=== PATIENT | female | born 1960 | race Caucasian/White ===

== ENCOUNTER → 2017-01-10 | Outpatient (CLI) | payer BC ==
[~2017-01-10] VITALS: Ht 154.9 cm; Wt 59.1 kg
[~2017-01-10] MED LIST: ACTEMRA162 MG/0.9 SQ; AFRIN 15 ML15 ML NS; ALBUTEROL1.25 MG/3 IH; ALDACTONE50 MG PO; ALEVE 220MG220 MG PO; AMOXICILLIN 8751 TAB PO; ASPIRIN E.C. 8181 MG PO; ATROVENTNS0.03% NS; BACTRIM DS 8001 TAB PO; BENADRYL25 M2 PO; BIOTIN FORTE EXT5 MG PO; CALTRATE-600 W600 MG PO; CARDIZEM CD 18180 MG PO; CARDIZEM CD 30300 MG PO; CARDIZEM CD120 MG PO; CELLCEPT 5500 MG/TAB PO; CENTRUM1 TAB PO; CLARITIN 1010 MG/TAB PO; COLACE 100100 MG/CAP PO; COZAAR100 MG PO; CRANBERRY450 MG PO; CYMBALTA 30MG30 MG PO; DESYREL 50MG50 MG PO; DULCOLAX TAB5 MG PO; FERROUS GL325 MG/TAB PO; FLONASE NASAL S16 GM NS; FLOVENT 110MCG7.9 GM IH; FOLIC ACID 11 MG/TA1 PO; FORTAMET500 MG PO; FOSAMAX 70MG TA70 MG PO; GLUCOPHAGE XR500 M1 PO; KLONOPIN 0.5MG0.5 MG PO; LIPITOR 10MG10 MG PO; LIQUID MAGNESI400 MG PO; MAGNESIUM200 MG PO; MASON NATURAL1200 MG PO; MERIBIN5 MG PO; MIDRIN 325 MG-11 CAP PO; MULTI VITAMINS1 TAB PO; MVI; NAPROSYN 2250 MG/TAB PO; NASACORT AQ N16.5 GM NS; NASACORT OTC NS; NEURONTIN300 MG/CAP PO; NORCO 325 MG-7.1 TAB PO; OMEGA-3 FISH1000 MG PO; OSCAL 500 TAB500 MG PO; PREDNISONE10 MG PO; PREMARIN 0.60.625 M1 PO; PREMARIN 0.9MG0.9 MG PO; PRIL40 PO; PRILOSEC 20MG20 MG PO; PROAIR HFA0.09 MG/AC IH; PROBIOTIC FORMU1 CAP PO; RASUVO10 MG/0.2 SQ; RITUXAN 50500 MG/50 IV; SALAGEN 5MG TAB5 MG PO; SALINE MIST 4545 ML NS; SENOKOT S 50 MG1 TAB PO; SINGULAIR 110 MG/TAB PO; SINGULAIR10 MG PO; TRAZODO50 MG PO; TREXALL15 MG PO; TURMERIC500 MG PO; TYLENOL 500MG500 MG PO; VALTREX 50500 MG/TAB PO; VENTOLIN0.09 MG IH; VITAMIN D 1001000 IU PO; VTAMINC250TA PO; WELLBUTRIN SR150 M1 PO; ZATADOR; ZYRTEC 10MG10 MG PO
[2017-01-10 10:13] VITALS: BP 133/72; PULSE 94
[2017-01-10 11:17] VITALS: BP 137/71; PULSE 98
== END ==
LOC: COL.RAD 09:45
DX: E07.89 Other specified disorders of thyroid (principal)

== ENCOUNTER → 2017-01-17 | Outpatient (CLI) | payer BC | LOC: MC.RAD 09:00 | DX: Z12.31 Encounter for screening mammogram for malignant neoplasm of breast (principal) ==

== ENCOUNTER → 2017-02-13 | Outpatient (CLI) | payer BC | LOC: COL.RAD 07:31 | DX: R11.10 Vomiting, unspecified (principal); Z98.890 Other specified postprocedural states ==

== ENCOUNTER → 2017-03-30 | Outpatient (CLI) | payer BC | LOC: COL.RAD 03-28 09:30 | DX: R11.2 Nausea with vomiting, unspecified (principal); M13.811 Other specified arthritis, right shoulder ==

== ENCOUNTER 2017-05-29 09:21 | Inpatient (IN) | payer BC ==
[2017-05-29] VITALS (8 sets, daily range): BP systolic 98–116; BP diastolic 23–49; PULSE 89–110; TEMP 98.2–100.4
[~2017-05-29] VITALS: Ht 154.9 cm; Wt 57.5 kg
[~2017-05-29 09:21] MED LIST changes: -AFRIN 15 ML15 ML NS; -ALEVE 220MG220 MG PO; -AMOXICILLIN 8751 TAB PO; -CARDIZEM CD 30300 MG PO; -MASON NATURAL1200 MG PO; -NASACORT OTC NS; -PREMARIN 0.60.625 M1 PO; -PRIL40 PO; -RASUVO10 MG/0.2 SQ; -SALINE MIST 4545 ML NS
[2017-05-29 10:05] LABS: HEMATOCRIT 41.2 % (37.0-47.0); HEMOGLOBIN 13.8 g/dl (12.5-16.0); MEAN CELL VOLUME 98 fl (80.0-100.0); MEAN CORPUSCULAR HEMOGLOBIN 33 pg (27.0-31.0); MEAN CORPUSCULAR HGB CONC 34 g/dl (33.0-37.0); MEAN PLATELET VOLUME 9.6 fl (7.4-10.4); PLATELET COUNT 210 K/mm3 (130-400); RED BLOOD COUNT 4.19 M/mm3 (4.10-5.30); REDCELL DISTRIBUTION WIDTH-CV 14.8 % (11.5-14.5); WHITE BLOOD COUNT 2.7 K/mm3 (4.8-10.8)
[2017-05-29 10:13] LABS: ADD PATHOLOGY DIFF REVIEW NO
[2017-05-29 10:16] LABS: ADJUSTED CALCIUM 8.8 mg/dL (8.4-10.2); ALBUMIN 3.9 gm/dL (3.5-5.0); BILIRUBIN,TOTAL 0.9 mg/dL (0.0-1.0); CALCIUM 8.7 mg/dL (8.4-10.2); CREATININE, serum 0.83 mg/dL (0.52-1.25); POTASSIUM 3.5 mmol/L (3.4-5.0); TOTAL PROTEIN 5.9 gm/dL (6.4-8.2)
[2017-05-29 11:11] LABS: BAND 17 % (0-10); BASOPHIL 3 % (0-2); EOSINOPHIL 4 % (0-4); NEUTROPHILS 35 % (42.0-75.2); PLATELET ESTIMATE NORMAL (NORMAL); TOTAL CELLS COUNTED 100
[2017-05-29 12:55] LABS: PH 5 (5-8); SQUAMOUS EPITHELIAL None Seen /hpf; URINE APPEARANCE Clear; URINE BACTERIA None Seen /hpf; URINE BILIRUBIN Negative (NEGATIVE); URINE BLOOD Negative (NEGATIVE); URINE COLOR Yellow; URINE GLUCOSE Negative (NEGATIVE); URINE KETONE Negative (NEGATIVE); URINE RBC 0-2 /hpf; URINE UROBILINOGEN Negative (NEGATIVE); URINE WBC 0-2 /hpf
[2017-05-29] MEDS ORDERED: ALEVE 220MG220 MG PO (14:38)
[2017-05-29] MEDS ORDERED: SALAGEN 5MG TAB5 MG PO (14:39)
[2017-05-29] MEDS ORDERED: FOLIC ACID 11 MG/TA1 PO (14:39)
[2017-05-29] MEDS ORDERED: AFRIN 15 ML15 ML NS ×2 (15:05→20:13)
[2017-05-29] MEDS ORDERED: SALINE MIST 4545 ML NS (20:13)
[2017-05-29] MEDS ORDERED: NASACORT OTC NS (20:14)
[2017-05-30 01:05] VITALS: BP 104/46; PULSE 95; TEMP 100.8
[2017-05-30] MEDS ORDERED: WELLBUTRIN SR150 M1 PO (02:29)
[2017-05-30] MEDS ORDERED: FOLIC ACID 11 MG/TA1 PO (02:33)
[2017-05-30] MEDS ORDERED: ALEVE 220MG220 MG PO (02:35)
[2017-05-30] MEDS ORDERED: PREMARIN 0.60.625 M1 PO (02:43)
[2017-05-30] MEDS ORDERED: RASUVO10 MG/0.2 SQ (02:43)
[2017-05-30] MEDS ORDERED: NEURONTIN300 MG/CAP PO ×2 (02:45→02:46)
[2017-05-30] MEDS ORDERED: CARDIZEM CD 30300 MG PO (02:48)
[2017-05-30] MEDS ORDERED: DESYREL 50MG50 MG PO (02:49)
[2017-05-30] MEDS ORDERED: MASON NATURAL1200 MG PO (02:51)
[2017-05-30] MEDS ORDERED: CELLCEPT 5500 MG/TAB PO (02:54)
[2017-05-30] MEDS ORDERED: CRANBERRY450 MG PO (02:56)
[2017-05-30] MEDS ORDERED: PRIL40 PO (03:02)
[2017-05-30 05:44] VITALS: BP 109/41; PULSE 83; TEMP 99
[2017-05-30 07:51] LABS: MEAN CELL VOLUME 98 fl (80.0-100.0); MEAN CORPUSCULAR HEMOGLOBIN 33 pg (27.0-31.0); MEAN CORPUSCULAR HGB CONC 33 g/dl (33.0-37.0); MEAN PLATELET VOLUME 10.4 fl (7.4-10.4); PLATELET COUNT 177 K/mm3 (130-400); RED BLOOD COUNT 3.68 M/mm3 (4.10-5.30); REDCELL DISTRIBUTION WIDTH-CV 14.2 % (11.5-14.5); WHITE BLOOD COUNT 9.4 K/mm3 (4.8-10.8)
[2017-05-30 07:55] LABS: ADD PATHOLOGY DIFF REVIEW NO; HEMATOCRIT 36.2 % (37.0-47.0)
[2017-05-30 08:00] LABS: CALCIUM 7.7 mg/dL (8.4-10.2); CREATININE, serum 0.78 mg/dL (0.52-1.25)
[2017-05-30 08:07] LABS: POTASSIUM 2.8 mmol/L (3.4-5.0)
[2017-05-30 10:00] VITALS: BP 108/43; PULSE 73; TEMP 97.7
[2017-05-30 12:51] LABS: BAND 21 % (0-10); NEUTROPHILS 76 % (42.0-75.2); PLATELET ESTIMATE INCREASED (NORMAL); TOTAL CELLS COUNTED 100; TOXIC GRANULATION PRESENT
[2017-05-30 14:34] VITALS: BP 104/87; PULSE 83; TEMP 98.1
[2017-05-30 17:36] VITALS: BP 118/55; PULSE 81; TEMP 98.3
[2017-05-30 21:52] VITALS: BP 108/42; PULSE 79; TEMP 98.2
[2017-05-31 05:38] VITALS: BP 123/54; PULSE 79; TEMP 98.4
[2017-05-31 06:36] LABS: MEAN CELL VOLUME 98 fl (80.0-100.0); MEAN CORPUSCULAR HGB CONC 33 g/dl (33.0-37.0); MEAN PLATELET VOLUME 9.5 fl (7.4-10.4); PLATELET COUNT 160 K/mm3 (130-400); RED BLOOD COUNT 3.23 M/mm3 (4.10-5.30); REDCELL DISTRIBUTION WIDTH-CV 14.6 % (11.5-14.5); WHITE BLOOD COUNT 6.5 K/mm3 (4.8-10.8)
[2017-05-31 06:46] LABS: HEMATOCRIT 31.5 % (37.0-47.0); HEMOGLOBIN 10.5 g/dl (12.5-16.0); MEAN CORPUSCULAR HEMOGLOBIN 33 pg (27.0-31.0)
[2017-05-31 07:01] LABS: CALCIUM 8.1 mg/dL (8.4-10.2); CREATININE, serum 0.63 mg/dL (0.52-1.25); MAGNESIUM 1.3 mg/dL (1.6-2.3); PHOSPHOROUS 3.1 mg/dL (2.5-4.5); POTASSIUM 3.2 mmol/L (3.4-5.0)
[2017-05-31 08:15] LABS: BAND 23 % (0-10); METAMYELOCYTE 1 % (0-0); MYELOCYTE 2 % (0-0); NEUTROPHILS 59 % (42.0-75.2); TOTAL CELLS COUNTED 100
[2017-05-31 08:16] LABS: PLATELET ESTIMATE DECREASED (NORMAL)
[2017-05-31 08:17] LABS: ADD PATHOLOGY DIFF REVIEW YES; HYPOCHROMIA 1+; OVALOCYTES 1+
[2017-05-31 08:26] LABS: PATHOLOGY DIFF REVIEW OK
[2017-05-31 10:10] VITALS: BP 125/59; PULSE 78; TEMP 98.4
[2017-05-31 14:16] VITALS: BP 128/52; PULSE 89; TEMP 97.1
[2017-05-31 18:02] VITALS: BP 131/62; PULSE 93; TEMP 98.2
[2017-05-31 21:50] VITALS: BP 119/50; PULSE 77; TEMP 98.6
[2017-06-01 01:52] VITALS: BP 130/54; PULSE 69; TEMP 98.6
[2017-06-01 05:48] VITALS: BP 120/46; PULSE 70; TEMP 98.2
[2017-06-01 09:33] VITALS: BP 127/50; PULSE 76; TEMP 97.8
[2017-06-01 13:29] VITALS: BP 127/48; PULSE 96; TEMP 98.7
[2017-06-01] MEDS ORDERED: AMOXICILLIN 8751 TAB PO (17:48)
== END 2017-06-01 19:20 | disposition home or self-care (01) | DRG 330 ==
LOC: COL.ER 09:21 → SURG 13:30
PROVIDERS: Emergency Medicine; Surgery
PROC: 0DJD4ZZ Inspection of Lower Intestinal Tract, Percutaneous Endoscopic Approach (ICD-10-PCS; 2017-05-29)
PROC: 0DBA0ZZ Excision of Jejunum, Open Approach (ICD-10-PCS; principal; 2017-05-29 15:00)
PROC: 07BC0ZX Excision of Pelvis Lymphatic, Open Approach, Diagnostic (ICD-10-PCS; 2017-05-29 15:00)
DX: K63.1 Perforation of intestine (nontraumatic) (principal); H46.9 Unspecified optic neuritis; M06.9 Rheumatoid arthritis, unspecified; M35.00 Sjogren syndrome, unspecified; I10 Essential (primary) hypertension; J45.909 Unspecified asthma, uncomplicated; E87.6 Hypokalemia
CPT/HCPCS: A4315; A9284; J0330; J1200; J1650; J1720; J1885; J2250; J2405; J2543; J2704; J2710; J2795; J3010; J3475; J7030; J7050; J7120; J7512; Q9967

== ENCOUNTER → 2017-08-14 | Outpatient (CLI) | payer BC ==
[~2017-08-14] VITALS: Ht 154.9 cm; Wt 60.5 kg
[~2017-08-14] MED LIST changes: +AFRIN 15 ML15 ML NS; +ALEVE 220MG220 MG PO; +AMOXICILLIN 8751 TAB PO; +CARDIZEM CD 30300 MG PO; +MASON NATURAL1200 MG PO; +NASACORT OTC NS; +PREMARIN 0.60.625 M1 PO; +PRIL40 PO; +RASUVO10 MG/0.2 SQ; +RASUVO25 MG/0.5 SQ; +SALINE MIST 4545 ML NS; +TUMERIC PO
[2017-08-14 09:48] VITALS: BP 129/78; PULSE 80
[2017-08-14 11:14] VITALS: BP 138/71; PULSE 77
== END ==
LOC: COL.RAD 08-02 12:00
DX: E04.1 Nontoxic single thyroid nodule (principal)

== ENCOUNTER → 2018-03-06 | Outpatient (CLI) | payer BC | LOC: ZCOL.LAB 10:21 | DX: R06.02 Shortness of breath (principal) ==

== ENCOUNTER → 2018-03-07 | Outpatient (CLI) | payer BC | LOC: COL.RAD 13:12 | DX: R06.02 Shortness of breath (principal); R00.2 Palpitations | CPT/HCPCS: Q9967 ==

== ENCOUNTER 2018-04-01 17:39 | Emergency (ER) | payer BC ==
[~2018-04-01] VITALS: Ht 157.5 cm; Wt 67.1 kg
[2018-04-01 17:52] VITALS: BP 131/60; TEMP 98.1
[2018-04-01] MEDS ORDERED: CRUTCHES MC (19:22)
[2018-04-01 19:32] VITALS: PULSE 83
== END 2018-04-01 19:32 | disposition home or self-care (01) ==
LOC: COL.ER 17:39
DX: S76.912A Strain of unspecified muscles, fascia and tendons at thigh level, left thigh, initial encounter (principal); I10 Essential (primary) hypertension; J45.909 Unspecified asthma, uncomplicated; K21.9 Gastro-esophageal reflux disease without esophagitis; M81.0 Age-related osteoporosis without current pathological fracture; Z79.82 Long term (current) use of aspirin; W19.XXXA Unspecified fall, initial encounter; Y92.009 Unspecified place in unspecified non-institutional (private) residence as the place of occurrence of the external cause
CPT/HCPCS: L1846

== ENCOUNTER → 2018-07-06 | Outpatient (CLI) | payer BC ==
[~2018-07-06] MED LIST changes: +CRUTCHES MC
== END ==
LOC: COL.RAD 07:58
DX: R13.12 Dysphagia, oropharyngeal phase (principal)

== ENCOUNTER 2018-12-23 15:08 | Emergency (ER) | payer BC ==
[~2018-12-23] VITALS: Ht 154.9 cm; Wt 75.0 kg
[2018-12-23 15:13] VITALS: TEMP 99.5
[2018-12-23 15:40] LABS: BASO # 0.1 (0.0-0.2); BASO % 0.3 % (0.0-2.0); EOS % 0.1 % (0-4.0); GRAN # 12.8 (1.4-6.5); GRAN % 89.6 % (42.2-75.2); HEMATOCRIT 43.4 % (37.0-47.0); HEMOGLOBIN 14.6 g/dl (12.5-16.0); LYMPH # 0.6 (1.2-3.4); LYMPH % 3.8 % (20.0-51.0); MEAN CELL VOLUME 93 fl (80.0-100.0); MEAN CORPUSCULAR HEMOGLOBIN 31 pg (27.0-31.0); MEAN CORPUSCULAR HGB CONC 34 g/dl (33.0-37.0); MEAN PLATELET VOLUME 10.5 fl (7.4-10.4); MONO # 0.8 (0.1-0.6); MONO % 5.4 % (1.7-9.3); PLATELET COUNT 232 K/mm3 (130-400); RED BLOOD COUNT 4.65 M/mm3 (4.10-5.30); REDCELL DISTRIBUTION WIDTH-CV 13.7 % (11.5-14.5)
[2018-12-23 15:57] LABS: BILIRUBIN,TOTAL 0.5 mg/dL (0.0-1.0); C-REACTIVE PROTEIN 2.5 mg/dL (0.0-0.9); CALCIUM 8.6 mg/dL (8.4-10.2); CREATININE, serum 0.85 mg/dL (0.52-1.25); POTASSIUM 3.4 mmol/L (3.4-5.0); TOTAL PROTEIN 6.5 gm/dL (6.4-8.2)
[2018-12-23] MEDS ORDERED: ZOFRAN ODT4 MG PO (17:38)
[2018-12-23 17:50] VITALS: BP 123/67; PULSE 104
== END 2018-12-23 17:56 | disposition home or self-care (01) ==
LOC: COL.ER 15:08
PROVIDERS: Emergency Medicine
DX: R11.2 Nausea with vomiting, unspecified (principal); R19.7 Diarrhea, unspecified; I10 Essential (primary) hypertension; J45.909 Unspecified asthma, uncomplicated; M06.9 Rheumatoid arthritis, unspecified; M35.00 Sjogren syndrome, unspecified; Z79.82 Long term (current) use of aspirin; Z90.49 Acquired absence of other specified parts of digestive tract; Z90.710 Acquired absence of both cervix and uterus
CPT/HCPCS: J2060; J2405; J2550; J7030; Q9967

== ENCOUNTER → 2019-06-28 | Outpatient (CLI) | payer BC ==
[~2019-06-28] MED LIST changes: +ZOFRAN ODT4 MG PO
== END ==
LOC: MC.RAD 07:30
DX: N60.41 Mammary duct ectasia of right breast (principal)
CPT/HCPCS: G0279

== ENCOUNTER → 2019-10-21 | Outpatient (CLI) | payer BC | LOC: COL.RAD 10-08 08:15 | DX: M48.061 Spinal stenosis, lumbar region without neurogenic claudication (principal); M51.36 Other intervertebral disc degeneration, lumbar region; M12.88 Other specific arthropathies, not elsewhere classified, other specified site; M51.16 Intervertebral disc disorders with radiculopathy, lumbar region ==

== ENCOUNTER → 2019-10-23 | Outpatient (CLI) | payer BC | LOC: COL.RAD 08:24 | DX: M18.9 Osteoarthritis of first carpometacarpal joint, unspecified (principal) | CPT/HCPCS: J3301; Q9967 ==

== ENCOUNTER → 2021-03-24 | Outpatient (CLI) | payer OTHER | LOC: COL.RAD 12:02 | DX: M51.17 Intervertebral disc disorders with radiculopathy, lumbosacral region (principal); M51.16 Intervertebral disc disorders with radiculopathy, lumbar region; M48.061 Spinal stenosis, lumbar region without neurogenic claudication; M48.07 Spinal stenosis, lumbosacral region ==

== ENCOUNTER → 2021-07-06 | Outpatient (CLI) | payer OTHER | LOC: MHCPAIN 08:44 | DX: M47.817 Spondylosis without myelopathy or radiculopathy, lumbosacral region (principal); M54.5 Low back pain; M53.3 Sacrococcygeal disorders, not elsewhere classified; M79.2 Neuralgia and neuritis, unspecified | CPT/HCPCS: G0463 ==

== ENCOUNTER → 2021-07-15 | Outpatient (CLI) | payer OTHER | LOC: MHCPAIN 08:48 | DX: M47.817 Spondylosis without myelopathy or radiculopathy, lumbosacral region (principal); M54.5 Low back pain; M53.3 Sacrococcygeal disorders, not elsewhere classified ==

== ENCOUNTER → 2021-07-20 | Outpatient (CLI) | payer OTHER | LOC: MHCPAIN 09:16 | DX: M47.817 Spondylosis without myelopathy or radiculopathy, lumbosacral region (principal); M54.5 Low back pain; M53.3 Sacrococcygeal disorders, not elsewhere classified | CPT/HCPCS: G0463 ==

== ENCOUNTER → 2022-01-03 | Outpatient (CLI) | payer OTHER | LOC: MHCPAIN 07-29 14:42 | DX: M47.817 Spondylosis without myelopathy or radiculopathy, lumbosacral region (principal); M53.3 Sacrococcygeal disorders, not elsewhere classified; M54.50 Low back pain, unspecified | CPT/HCPCS: G0463 ==

== ENCOUNTER → 2022-02-10 | Outpatient (CLI) | payer OTHER | LOC: MHCPAIN 01-27 11:06 | DX: M47.817 Spondylosis without myelopathy or radiculopathy, lumbosacral region (principal); M54.50 Low back pain, unspecified; M53.3 Sacrococcygeal disorders, not elsewhere classified | CPT/HCPCS: G0463 ==

== ENCOUNTER → 2022-03-03 | Outpatient (CLI) | payer OTHER | LOC: MHCPAIN 08:27 | DX: M47.817 Spondylosis without myelopathy or radiculopathy, lumbosacral region (principal); M54.50 Low back pain, unspecified; M53.3 Sacrococcygeal disorders, not elsewhere classified | CPT/HCPCS: G0463; J2250; J2405; J3010 ==

== ENCOUNTER → 2022-04-26 | Outpatient (CLI) | payer BC | LOC: MHCPAIN 08:33 | DX: M53.3 Sacrococcygeal disorders, not elsewhere classified (principal); M47.817 Spondylosis without myelopathy or radiculopathy, lumbosacral region; M54.50 Low back pain, unspecified | CPT/HCPCS: G0463 ==

== ENCOUNTER → 2022-12-09 | Outpatient (CLI) | payer BC | LOC: MC.RAD 11:11 | DX: Z12.31 Encounter for screening mammogram for malignant neoplasm of breast (principal) ==

== ENCOUNTER 2023-01-17 07:12 | Day surgery (SDC) | payer OTHER, BC ==
[~2023-01-17] VITALS: Ht 154.9 cm; Wt 69.6 kg
[2023-01-17 09:30] VITALS: BP 113/57; PULSE 81; TEMP 97.3
--- NOTE | 2023-01-17 09:30 | NUR ---
0930 PATIENT RETURNS TO ROOM 2 VIA CART. PATIENT IS ALERT AND ORIENTED. PATIENT SPOUSE IS IN ROOM. PATIENT AMBULATES TO RECLINER WITH THE ASSISTANCE OF 2 NURSES. RESPIRATIONS EVEN AND UNLABORED. VITAL SIGNS OBTAINED. PATIENT REQUESTED WATER. NO DIFFICULTIES SWALLOWING. 0955 DISCHARGE INSTRUCTIONS REVIEWED WITH PATIENT AND PATIENT SPOUSE. BOTH VERBALIZED UNDERSTANDING. 1000 DISCONTINUED IV FROM RIGHT HAND WITH DIFFICULTIES. 1003 DOCTOR IN TO SPEAK WITH PATIENT. 1005 PATIENT DRESSES SELF. 1015 PATIENT DISCHARGES FROM UNIT VIA WHEELCHAIR IN STABLE CONDITION TO PERSONAL VEHICLE.
[2023-01-17 09:45] VITALS: BP 117/55; PULSE 73
[2023-01-17 10:00] VITALS: BP 119/55; PULSE 72
[2023-01-17 11:10] VITALS: BP 120/54; PULSE 87; TEMP 97.3
[2023-01-17] MEDS ORDERED: LAMICTAL 100MG100 MG PO (11:19)
[2023-01-17] MEDS ORDERED: RANEXA 500MG T500 MG PO (11:20)
[2023-01-17] MEDS ORDERED: PRINZIDE 12.5 M1 TAB PO (11:22)
[2023-01-17] MEDS ORDERED: 00186-0372-20 IH (11:22)
[2023-01-17] MEDS ORDERED: SYNTHROID 0.0.025 MG PO (11:23)
[2023-01-17] MEDS ORDERED: ASMANEX HF200 MCG/Ac IH (11:23)
[2023-01-17] MEDS ORDERED: CELLCEPT 5500 MG/TAB PO (11:24)
[2023-01-17] MEDS ORDERED: PROBIOTIC 2 BI1 EACH PO (11:25)
[2023-01-17] MEDS ORDERED: XELJANZ XR11 MG PO (11:25)
[2023-01-17] MEDS ORDERED: BRINTELLIX20 (11:26)
[2023-01-17] MEDS ORDERED: ASPIRIN 81M81 MG/TA2 PO (11:29)
[2023-01-17] MEDS ORDERED: BIOTIN10000 MC1 PO (11:31)
[2023-01-17] MEDS ORDERED: CITRACAL-D3 ER1 EACH PO (11:32)
[2023-01-17] MEDS ORDERED: MASON NATURAL2000 IU PO (11:33)
[2023-01-17] MEDS ORDERED: FERROUS GL325 MG/TAB (11:35)
[2023-01-17] MEDS ORDERED: PROLIA60 MG/ML SQ (11:35)
[2023-01-17] MEDS ORDERED: ALLEGRA 180MG180 MG PO (11:36)
[2023-01-17] MEDS ORDERED: FLONASE NASAL S16 GM NS ×2 (11:36→11:37)
[2023-01-17] MEDS ORDERED: NEURONTIN300 MG/CAP PO (11:38)
[2023-01-17] MEDS ORDERED: MAGNESIUM GLUC500 MG (11:39)
[2023-01-17] MEDS ORDERED: MELATONIN3 M1 (11:39)
[2023-01-17] MEDS ORDERED: SINGULAIR 110 MG/TAB PO (11:40)
[2023-01-17] MEDS ORDERED: CVS SPECTRAVIT1 EA15 PO (11:41)
[2023-01-17] MEDS ORDERED: PRIL40 PO (11:43)
[2023-01-17] MEDS ORDERED: OMEGA-31 SGL PO (11:43)
[2023-01-17] MEDS ORDERED: PREDNISONE1 MG PO (11:44)
[2023-01-17] MEDS ORDERED: BACTRIM DS 8001 TAB PO (11:45)
[2023-01-17] MEDS ORDERED: CRESTOR 10MG10 MG PO (11:45)
[2023-01-17] MEDS ORDERED: DESYREL 50MG50 MG PO (11:46)
[2023-01-17] MEDS ORDERED: VALTREX 50500 MG/TAB PO (11:47)
== END 2023-01-17 10:15 | disposition home or self-care (01) ==
LOC: SDCO 07:12
DX: Z12.11 Encounter for screening for malignant neoplasm of colon (principal); D12.2 Benign neoplasm of ascending colon; K56.41 Fecal impaction; E11.9 Type 2 diabetes mellitus without complications; I10 Essential (primary) hypertension; K21.9 Gastro-esophageal reflux disease without esophagitis; K44.9 Diaphragmatic hernia without obstruction or gangrene; J45.909 Unspecified asthma, uncomplicated
CPT/HCPCS: J2704; J7120